=== PATIENT | male | born 1955 | race Caucasian/White ===

== ENCOUNTER 2017-04-18 09:22 | Outpatient (CLI) | payer OTHER | END 2017-04-18 09:23 | disposition home or self-care (01) | LOC: BICULT 09:22 | PROVIDERS: ATTEND Neurological Surgery | DX: G93.5 Compression of brain (principal); M47.892 Other spondylosis, cervical region; M99.81 Other biomechanical lesions of cervical region | CPT/HCPCS: 70551; 72141; 93880 ==

== ENCOUNTER 2019-03-12 14:43 | Outpatient (CLI) | payer OTHER ==
--- NOTE | 2019-03-12 15:15 | RAD ---
Chest 2 views HISTORY: Cough and congestion. COMPARISON: 06/05/2017. FINDINGS: Cardiac silhouette and pulmonary vasculature are unremarkable. Lungs remain hyperinflated. Mediastinum is midline. No confluent airspace consolidation, pneumothorax, or pleural fluid. Ossification of anterior longitudinal ligament of the thoracic spine on the lateral view is consisten t with diffuse idiopathic skeletal hyperostosis. IMPRESSION: Pulmonary hyperinflation and other chronic-type findings are stable.
== END 2019-03-12 14:44 | disposition home or self-care (01) ==
LOC: SCSRAD 14:43
PROVIDERS: ATTEND Nurse Practitioner Family
DX: J18.9 Pneumonia, unspecified organism (principal)
CPT/HCPCS: 71046